=== PATIENT | male | born 1950 | race Caucasian/White ===

== ENCOUNTER → 2016-07-26 | Outpatient (CLI) | payer OTHER, MEDICARE ==
--- NOTE | 2016-07-26 15:09 | US ---
Neck Ultrasound July 26, 2016 Indication: Multinodular thyroid gland. Technique: The thyroid gland was evaluated with a high-resolution linear transducer, and the retroste rnal component of the thyroid gland was evaluated with a curved pediatric transducer. Comparison: CT of the chest dated July 08, 2016. Findings Left Lobe: A well-circumscribed [id number], heterogeneous nodule in the left mid lobe, containin g microseptations and cystic formation measures 3.7 x 3.0 x 2.4 cm. The nodule has moderate increased blood flow on color Doppler imaging. No associated microcalcifications. An exophytic nodule extending off the inferior pole of the left lobe, extending into the retrosternal space, is difficult to optimally visualize given its location in the superior mediastinum. The retro sternal nodule, containing heterogeneous calcification, measures approximately 3.2 x 2.6 x 2.5 cm. Right Lobe: A mixed cystic and solid well-circumscribed nodule in the lower right lobe measures 1.2 x 1.1 x 0.8 cm. The nodule has minimal internal blood flow on color Doppler imaging. No associated razia rocalcifications. A benign 0.5 cm colloid cyst resides in the superior right lobe. The gland is minimally enlarged with otherwise normal smooth capsule and homogeneous echogenicity. Right Lobe: 4.7 cm in length x 2.2 x 1.8 cm. Left Lobe: At least 5.6 cm in length x 2.5 x 2.1 cm Isthmus: 0.6 cm AP. No enlarged lymph node throughout the right or left neck. Impression: Multinodular thyroid gland. Dominant 3.7 cm nodule in the left mid gland and dominant ret rosternal nodule emanating off the inferior aspect of the left lobe. Based on size criteria, establis hed by the Society [employer] Ul[employer], the dominant nodule in left mid gland and the retrosternal n odule should be sampled with fine-needle aspiration. The retrosternal nodule may not be accessible gi cheyanne its location the superior mediastinum. A Follow-Up Required test result notification was sent via the [employer] service, 2:51:03 PM, 07/26/2016, [employer] Message ID [id number].
== END ==
LOC: FIMAGING 12:52
PROVIDERS: ATTEND Nurse Practitioner Adult Health
DX: E04.1 Nontoxic single thyroid nodule (principal)

== ENCOUNTER → 2016-08-05 | Outpatient (CLI) | payer OTHER, MEDICARE ==
--- NOTE | 2016-08-05 11:58 | DX ---
Chest, PA and Lateral Upright Views - August 05, 2016, at 11:16 a.m. Clinical History: 66-year-old male with a prior history of a left superomedial upper lobe pneumonia a nd substernal goiter, with a persistent cough and shortness of breath. ICD-10 Diagnostic Code: J18.1. Comparison Studies: Chest radiography and CT imaging dated July 08, 2016, thyroid sonography date d July 26, 2016, and left shoulder radiography dated January 23, 2016. Findings: There is a persistent, though slightly improved pneumonia involving the medial left upper lobe, with dense consolidation. Obstructive atelectasis may be present, and given the persistence of this finding, it may be worthwhile to consider pulmonary consultation and bronchoscopy. There is mild central perihilar bronchial wall thickening. There is mild eventration of the right hemidiaphragm. T here are degenerative features of the spine with mild ventral concavities at some [id number]-[id number] thorac ic and upper lumbar levels. Slight left lateral tracheal deviation may reflect the patient's underlyi ng substernal goiter. Impression: Slight improvement, although persistent dense consolidation of the medial left apical pn eumonia compared to July 08, 2016. Results were conveyed to the voicemail of Cesia White, Nurse Practitioner, as requested. A test result has been communicated to a licensed care provider and documented in [employer], 11:54:14 A M, 08/05/2016, [employer] Message ID [id number].
== END ==
LOC: BMCIMAGING 11:20
PROVIDERS: ATTEND Nurse Practitioner Adult Health
DX: J18.1 Lobar pneumonia, unspecified organism (principal)

== ENCOUNTER 2016-08-09 12:37 | Day surgery (SDC) | payer OTHER, MEDICARE ==
[2016-08-09] MEDS ORDERED: LIDOCAINE 1% 30 ML SDV ONE ×2 (13:32→15:11)
[2016-08-09] MEDS ORDERED: LIDOCAINE 2% JELLY 5 ML TUBE ONE (13:32)
[2016-08-09] MEDS ORDERED: ALBUTEROL 3 ML DEYVIAL ONE (13:32)
[2016-08-09] MEDS ORDERED: MIDAZOLAM 2 MG/2 ML VIAL ONE ×2 (14:27→14:58)
[2016-08-09] MEDS ORDERED: fentaNYL 100 MCG/2 ML INJ ONE ×2 (14:28→14:58)
--- NOTE | 2016-08-09 16:11 | GPN ---
[f rep st] PROCEDURE NOTE DATE OF PROCEDURE: 08/09/2016 PROCEDURE: Bronchoscopy. INDICATION: Left upper lobe atelectasis unresponsive to antibiotics with a CT scan suggesting an obs tructive bronchus/mass. The patient does have a history of smoking. DESCRIPTION OF PROCEDURE: The procedure was done in the endoscopy unit. Appropriate time-out was pe rformed. Appropriate barrier masks were worn. Informed consent was obtained from the patient. Topi nunu anesthesia consisted of a small amount of Hurricaine spray to the posterior oropharynx and approx imately 20 mL of 1% lidocaine. Conscious sedation included 6 mg of Versed and 150 mcg of fentanyl gi cheyanne intravenously. The fiberoptic bronchoscope was passed via a bite block orally into the larynx. Laryngeal structures were normal. The vocal cords moved normally with respiration and cough. There was no evidence of p aralysis, no laryngeal or vocal cord lesions. The bronchoscope was then advanced into the trachea an d into the tracheal bronchial tree bilaterally. All areas were observed to at least the segmental le nisa. Anatomy was normal bilaterally with the exception of the left upper lobe. The superior segment of the left upper lobe was almost totally occluded with abnormal tissue. Brushes and biopsy forceps could be passed through this proximal obstruction without difficulty. There was no evidence of puru lent drainage. Bronchial washings were taken from this area. Following this, a cytology brush biops y sample was obtained from the proximal lesion in this airway and beyond. Biopsies were subsequently taken. Some of the biopsies were endobronchial, at the origin of the lesion. Other biopsies were t aken more distally from the atelectatic lung segment or lung mass under fluoroscopic guidance. The patient tolerated the procedure well. There were no complications. There was no significant ble eding. Vital signs and oxygen saturations on supplemental oxygen remained normal throughout the proc edure. IMPRESSION: Obstruction of the superior segment of the left upper lobe with abnormal tissue. This f inding is worrisome for malignancy. Appropriate samples were obtained. These visual results were discussed with the patient and his following the procedure. He will b e seen back for followup next week to discuss results. Copy requested to: Cesia Gonsalves N.P. [facility] /[id number]/MODL
--- NOTE | 2016-08-09 18:49 | DX ---
Fluoroscopy Provided for Bronchoscopy HISTORY: Persistent cough, with history of left upper lobe pneumonia. Fluoroscopy time: 95.8 seconds. Cumulative dose: 10.05 mGy. FINDINGS: Single image demonstrates a bronchoscope in the left upper lobe bronchus. FINDINGS: Fluoroscopy for bronchoscopy.
== END 2016-08-09 16:10 | disposition home or self-care (01) ==
LOC: FSGY 12:37
PROVIDERS: ATTEND Internal Medicine Pulmonary Disease
PROC: 0BB88ZX Excision of Left Upper Lobe Bronchus, Via Natural or Artificial Opening Endoscopic, Diagnostic (ICD-10-PCS; principal; 2016-08-09 14:30)
DX: J84.89 Other specified interstitial pulmonary diseases (principal); I12.9 Hypertensive chronic kidney disease with stage 1 through stage 4 chronic kidney disease, or unspecified chronic kidney disease; N18.3 Chronic kidney disease, stage 3 (moderate); M06.9 Rheumatoid arthritis, unspecified
CPT/HCPCS: J0171; J2250; J3010

== ENCOUNTER → 2017-03-26 | Outpatient (CLI) | payer OTHER, MEDICARE | LOC: CIMAGING 10:08 | PROVIDERS: ATTEND Orthopaedic Surgery | DX: Z01.818 Encounter for other preprocedural examination (principal); M17.11 Unilateral primary osteoarthritis, right knee ==

== ENCOUNTER 2017-03-31 07:15 | Inpatient (IN) | payer OTHER, MEDICARE ==
--- NOTE | 2017-03-31 07:09 | PDHPUP ---
History & Physical Update H&P update statement: This history and physical update is based on an assessment of the patient which was completed after admission or registration (within 24 hours), but prior to the surgery/procedure.
--- NOTE | 2017-03-31 07:12 | PDIAF ---
- Diagnosis Diagnosis: right knee djd Code Status: Full Code - Medication Management Discharge Medications: Medications to Continue on Transfer amLODIPine BESYLATE [Norvasc 10 mg (*)] 10 mg PO DAILY 08/08/16 [Last Taken ] traMADol [Ultram 50 mg (*)] 50 mg PO Q4-6PRN PRN 08/08/16 [Last Taken 08/09/16] Furosemide [Lasix 40 MG (*)] 40 mg PO DAILY 03/04/17 [Last Taken Unknown] Hydrocodone/Acetaminophen [[place] 5/325 (*)] 1 tab PO DAILY PRN 03/04/17 [Last Taken Unknown] Isoniazid [Isoniazid 300 mg (*)] 300 mg PO HS 03/04/17 [Last Taken Unknown] Lisinopril [Zestril 5 mg (*)] 5 mg PO BID 03/04/17 [Last Taken Unknown] Pyridoxine HCl [Vitamin B-6 25 mg (*)] 25 mg PO DAILY 03/04/17 [Last Taken Unknown] Rifampin [Rifadin 300mg (*)] 300 mg PO DAILY 03/04/17 [Last Taken Unknown] Remicade Inj 100 mg (*) 03/10/17 [Last Taken 02/25/17] Discharge Medications: Refer to the Discharge Home Medication list for PRN reason. - Orders Services needed: Physical Therapy Diet Recommendation: no restrictions on diet Diet Texture: Regular Texture Diet Activity/Weight Bearing Restrictions: wbat. rom as vannessa. daily dressing changes. no soaking. may shower without bandage. seek attn for increasing redness, swelling, drainage, discharge. f/u at two weeks - Follow Up Care Current Providers and Referrals: Cesia White NP [Primary Care Provider] -
[~2017-03-31 07:15] MED LIST: ROPIVACAINE 0.2% 80 MG, EPINEPHrine 0.2 MG, KETOROLAC TROMETHAMINE 30 MG, morphINE 10 M... IU ONE; TRANEXAMIC ACID 760 MG in NS 100 ML IV ONE
[2017-03-31] MEDS ORDERED: CALCIUM CHLORIDE 1 GM/10 ML INJ ONE (11:30)
[2017-03-31] MEDS ORDERED: ceFAZolin 1 GM/5 ML SYR ONE ×2 (11:30→11:31)
[2017-03-31] MEDS ORDERED: THROMBIN (BOVINE) 5,000 UNIT VIAL TP ONE (11:30)
[2017-03-31] MEDS ORDERED: LIDOCAINE 1% 2 ML INJ ONE (11:45)
[2017-03-31] MEDS ORDERED: TRANEXAMIC ACID 650 MG TAB PO SCH (11:51)
[2017-03-31] MEDS ORDERED: traMADol 50 MG TAB PO PRN (11:51)
[2017-03-31] MEDS ORDERED: METOCLOPRAMIDE 10 MG/2 ML VIAL IVP PRN (11:51)
[2017-03-31] MEDS ORDERED: ceFAZolin 2 GM/DEXTROSE 100 ML IV ONE (11:51)
[2017-03-31] MEDS ORDERED: POLYETHYLENE GLYCOL 3350 17 GM PKT PO PRN (11:51)
[2017-03-31] MEDS ORDERED: ONDANSETRON DISINTEGRATING 4 MG TAB PO PRN (11:51)
[2017-03-31] MEDS ORDERED: ACETAMINOPHEN 325 MG TAB PO ONE (11:51)
[2017-03-31] MEDS ORDERED: MAGNESIUM HYDROXIDE 30 ML UDCUP PO PRN (11:51)
[2017-03-31] MEDS ORDERED: BISACODYL 10 MG SUPP PR PRN (11:51)
[2017-03-31] MEDS ORDERED: PROMETHAZINE HCL 25 MG/ML INJ IVP PRN (11:51)
[2017-03-31] MEDS ORDERED: DIAZEPAM 5 MG TAB PO PRN (11:51)
[2017-03-31] MEDS ORDERED: diphenhydrAMINE 25 MG CAP PO PRN (11:51)
[2017-03-31] MEDS ORDERED: DIPHENOXYLATE/ATROPINE LOMOTIL 1 TAB PO PRN (11:51)
[2017-03-31] MEDS ORDERED: PROMETHAZINE HCL 25 MG SUPPR PR PRN (11:51)
[2017-03-31] MEDS ORDERED: ONDANSETRON 4 MG/2 ML VIAL IVP PRN ×2 (11:51→14:52)
[2017-03-31] MEDS ORDERED: PHARMACY PAIN CONSULT 1 EA MISC PRN (11:51)
[2017-03-31] MEDS ORDERED: FAMOTIDINE 20 MG TAB PO ONE (11:51)
[2017-03-31] MEDS ORDERED: LR 1,000 ML IV SCH (11:51)
[2017-03-31] MEDS ORDERED: DEXAMETHASONE 4 MG/ML VIAL IVP ONE (11:51)
[2017-03-31] MEDS ORDERED: TEMAZEPAM 15 MG CAP PO PRN (11:51)
[2017-03-31] MEDS ORDERED: LACTULOSE 20 GM/30 ML UDCUP PO PRN (11:51)
[2017-03-31] MEDS ORDERED: NS 1,000 ML IV ONE (11:53)
--- NOTE | 2017-03-31 13:30 | PDANEPAE ---
ANE History of Present Illness 67 year old male w/ PMHx of RA (on remicade), TB (diagnosed in Jul 2016, on Rifampin and Isoniazid), CKD (stage III) presents for right total knee replacement. ANE Past Medical History - Cardiovascular History Hx Hypertension: Yes Hx Arrhythmias: No Hx Chest Pain: No Hx Coronary Artery / Peripheral Vascular Disease: No Hx CHF / Valvular Disease: No Hx Palpitations: No - Pulmonary History Hx COPD: No Hx Asthma/Reactive Airway Disease: No Hx Recent Upper Respiratory Infection: No Hx Oxygen in Use at Home: No Hx Sleep Apnea: No Sleep Apnea Screening Result - Last Documented: Negative Pulmonary History Comment: CURRENT COUGH & SOB - Neurologic History Hx Cerebrovascular Accident: No Hx Seizures: No Hx Dementia: No - Endocrine History Hx Diabetes: No Hypothyroid: No Hyperthyroid: No Obesity: mild Endocrine History Comment: WORKING UP THYROID PROBLEM - Renal History Hx Renal Disorders: Yes Renal History Comment: STAGE III KIDNEY DISEASE - Liver History Hx Hepatic Disorders: No - Neurological & Psychiatric Hx Hx Neurological and Psychiatric Disorders: No - Cancer History Hx Cancer: No - Congenital Disorder History Hx Congenital Disorders: No - GI History GERD: no Hx Gastrointestinal Disorders: No - Other Health History Other Health History: BRUISES EASILY - Chronic Pain History Chronic Pain: Yes (HANDS & SHOULDERS) - Surgical History Prior Surgeries: KNEE MENISCUS L. PROSTATE PHOTOVAPORIZATION. DENTAL IMPLANTS ANE Review of Systems Review of systems is: negative Review of Systems: - Exercise capacity Exercise capacity: >=4 METS METS (RN): 4 METS ANE Patient History - Allergies Allergies/Adverse Reactions: No Known Allergies Allergy (Verified 03/10/17 10:55) - Home Medications Home medications: home medication list seen and reviewed Home Medications: amLODIPine BESYLATE [Norvasc 10 mg (*)] 10 mg PO DAILY 08/08/16 [Last Taken 06/06] traMADol [Ultram 50 mg (*)] 50 mg PO Q4-6PRN PRN 08/08/16 [Last Taken 03/31/17] Furosemide [Lasix 40 MG (*)] 40 mg PO DAILY 03/04/17 [Last Taken 03/31/17] Hydrocodone/Acetaminophen [[place] 5/325 (*)] 1 tab PO DAILY PRN 03/04/17 [Last Taken 03/24/17] Isoniazid [Isoniazid 300 mg (*)] 300 mg PO HS 03/04/17 [Last Taken 03/31/17] Lisinopril [Zestril 5 mg (*)] 5 mg PO BID 03/04/17 [Last Taken 03/31/17] Pyridoxine HCl [Vitamin B-6 25 mg (*)] 25 mg PO DAILY 03/04/17 [Last Taken 03/31] Rifampin [Rifadin 300mg (*)] 300 mg PO DAILY 03/04/17 [Last Taken 03/31/17] Remicade Inj 100 mg (*) 03/10/17 [Last Taken 02/25/17] - NPO status NPO Status: no food or drink >8 hours NPO Since - Liquids (Date): 03/31/17 NPO Since - Liquids (Time): 04:00 NPO Since - Solids (Date): 03/30/17 NPO Since - Solids (Time): 04:00 - Anes Hx Anes Hx: no prior problems - Smoking Hx Smoking Status: Former smoker - Alcohol Use Alcohol Use: None - Family Anes Hx Family Anes Hx: neg - N/A Family Hx Anesthesia Complications: NEG ANE Labs/Vital Signs - Vital Signs Vital Signs: reviewed preoperatively; see RN documention for details Blood Pressure: 138/83 Heart Rate: 80 Respiratory Rate: 16 O2 Sat (%): 96 Height: 167.64 cm Weight: 76.204 kg ANE Physical Exam - Airway Neck exam: FROM Mallampati Score: Class 2 Mouth exam: poor dentition, dentures - Pulmonary Pulmonary: no respiratory distress - Cardiovascular Cardiovascular: regular rate and rhythym - ASA Status ASA Status: III ANE Anesthesia Plan Anesthesia Plan: MAC, spinal (General anesthesia will be back-up plan.)
[2017-03-31] MEDS ORDERED: MIDAZOLAM 2 MG/2 ML VIAL IVP ONE ×2 (13:32→15:00)
[2017-03-31] MEDS ORDERED: PROPOFOL/EMULSION 500 MG/50 ML BOTTLE IV ONE (13:43)
[2017-03-31] MEDS ORDERED: ceFAZolin 2 GM/DEXTROSE 100 ML IV SCH (14:00)
[2017-03-31] MEDS ORDERED: ROPIVACAINE HCL 150 MG/30 ML INJ ONE (14:01)
[2017-03-31] MEDS ORDERED: PHENYLEPHRINE HCL 100 MCG/ML SYR ONE (14:42)
[2017-03-31] MEDS ORDERED: LR 500 ML IV PRN (14:52)
[2017-03-31] MEDS ORDERED: fentaNYL 100 MCG/2 ML INJ IVP PRN (14:52)
[2017-03-31] MEDS ORDERED: HYDROCODONE/APAP 5/325 TAB PO PRN (14:52)
[2017-03-31] MEDS ORDERED: NALOXONE HCL 0.4 MG/ML INJ IVP PRN (14:52)
[2017-03-31] MEDS ORDERED: ONDANSETRON 4 MG/2 ML VIAL ONE (14:58)
[2017-03-31] MEDS ORDERED: DEXAMETHASONE 4 MG/ML VIAL ONE (14:58)
[2017-03-31] MEDS ORDERED: fentaNYL 100 MCG/2 ML INJ ONE (15:48)
--- NOTE | 2017-03-31 16:44 | POSTANESTH ---
Post Anesthetic Evaluation Cardiovascular Status: Normal, Stable, Similar to Pre-Op Cond Respiratory Status: Normal, Stable, Similar to Pre-op Cond. Level of Consciousness/Mental Status: Can Participate in Eval, Alert and Oriented Pain Control: Adequate, Prn Tx Ordered Nausea/Vomiting Control: Adequate, Prn Tx Ordered Complications Possibly Related to Anesthesia: None Noted
[2017-03-31] MEDS: LISINOPRIL 5 MG TAB PO SCH ×2 (17:56→21:30)
[2017-03-31] MEDS: FUROSEMIDE 40 MG TAB PO SCH (17:56)
[2017-03-31] MEDS: SENNOSIDES/DOCUSATE SODIUM TAB PO SCH ×2 (18:15→21:26)
[2017-03-31] MEDS: PYRIDOXINE HCL 25 MG TAB PO SCH (18:15)
[2017-03-31] MEDS: ACETAMINOPHEN 325 MG TAB PO SCH (18:16)
[2017-03-31] MEDS: oxyCODONE IR 5 MG TAB PO PRN ×2 (18:18→21:25)
[2017-03-31] MEDS: ceFAZolin 2 GM/DEXTROSE 100 ML IV SCH (18:50)
[2017-03-31] MEDS ORDERED: ISONIAZID 300 MG TAB PO SCH (21:00)
[2017-03-31] MEDS ORDERED: ASPIRIN 325 MG TAB PO SCH (21:00)
[2017-03-31] MEDS: FAMOTIDINE 20 MG TAB PO SCH (21:25)
[2017-04-01] MEDS: TRANEXAMIC ACID 650 MG TAB PO SCH ×2 (00:40→09:33)
[2017-04-01] MEDS: oxyCODONE IR 5 MG TAB PO PRN ×4 (00:40→12:24)
[2017-04-01] MEDS: ACETAMINOPHEN 325 MG TAB PO SCH ×3 (00:40→12:24)
[2017-04-01] MEDS: ceFAZolin 2 GM/DEXTROSE 100 ML IV SCH (02:58)
[2017-04-01 04:55] LABS: HEMATOCRIT 32.9 % (40.0-51.0); HEMOGLOBIN 10.7 g/dL (13.7-17.5)
[2017-04-01] MEDS ORDERED: ISONIAZID 300 MG TAB PO SCH (06:00)
--- NOTE | 2017-04-01 07:30 | PDIAF ---
- Diagnosis Diagnosis: right knee djd Code Status: Full Code - Medication Management Discharge Medications: Medications to Continue on Transfer amLODIPine BESYLATE [Norvasc 10 mg (*)] 10 mg PO DAILY 08/08/16 [Last Taken 06/06] traMADol [Ultram 50 mg (*)] 50 mg PO Q4-6PRN PRN 08/08/16 [Last Taken 03/31/17] Furosemide [Lasix 40 MG (*)] 40 mg PO DAILY 03/04/17 [Last Taken 03/31/17] Hydrocodone/Acetaminophen [[place] 5/325 (*)] 1 tab PO DAILY PRN 03/04/17 [Last Taken 03/24/17] Isoniazid [Isoniazid 300 mg (*)] 300 mg PO DAILY@06 03/04/17 [Last Taken ] Lisinopril [Zestril 5 mg (*)] 5 mg PO BID 03/04/17 [Last Taken 03/31/17] Pyridoxine HCl [Vitamin B-6 25 mg (*)] 25 mg PO DAILY 03/04/17 [Last Taken 03/31] Rifampin [Rifadin 300mg (*)] 300 mg PO DAILY 03/04/17 [Last Taken 03/31/17] Remicade Inj 100 mg (*) 03/10/17 [Last Taken 02/25/17] Enoxaparin [Lovenox] 30 mg SC BID #14 syr 04/01/17 [Last Taken Unknown] oxyCODONE IR [Oxycodone Ir (*)] 5 - 10 mg PO Q3HRS PRN #80 tab 04/01/17 [Last Taken Unknown] Discharge Medications: Refer to the Discharge Home Medication list for PRN reason. - Orders Services needed: Physical Therapy Diet Recommendation: no restrictions on diet Diet Texture: Regular Texture Diet Activity/Weight Bearing Restrictions: wbat. rom as vannessa. daily dressing changes. no soaking. may shower without bandage. seek attn for increasing redness, swelling, drainage, discharge. f/u at two weeks - Follow Up Care Current Providers and Referrals: Cesia White NP [[facility] [place] Primary Care Provider] -
[2017-04-01 07:45] VITALS: RESP 20
--- NOTE | 2017-04-01 07:52 | GDS ---
[f rep st] DISCHARGE SUMMARY ADMITTING DIAGNOSIS: Right knee degenerative joint disease. DISCHARGE DIAGNOSIS: Right knee degenerative joint disease. PROCEDURE: Right total knee arthroplasty. OPERATIVE INDICATIONS: The patient is a 67-year-old gentleman with end-stage arthritis to his right knee. Clinical and radiographic features are consistent with this. He has failed all attempts at co nservative management. I have, therefore, recommended total knee replacement. He understood the ris ks, benefits, alternatives, and wished to proceed. Written consent was signed and placed in the [facility] ent's chart. HOSPITAL COURSE: The patient was admitted to the hospital floor after uncomplicated total knee arthr oplasty. He tolerated the procedure well. Postoperatively, he had no complications. At the time of discharge, he is tolerating an oral diet. His pain is well controlled on oral medicines. He is voi ding without difficulty. Dressing is clean, dry, and intact. He has no calf swelling or tenderness bilaterally. Negative Alfie's bilaterally. X-rays are stable with anatomic alignment. No fracture or lucency. DISCHARGE ACTIVITIES: He is weightbearing as tolerated. Range of motion as tolerated. Daily dressi ng changes. No soaking or immersion. Follow up for increasing redness, swelling, drainage, discharg e, calf pain, other focal complaints. FOLLOWUP: Two weeks for repeat evaluation. DISCHARGE MEDICATIONS: Oxycodone 5 mg 1-3 every 4 hours p.r.n. pain. Lovenox 30 mg subcu b.i.d. for 2 weeks. Copy requested to: Primary Care Physician /[id number]/MODL
[2017-04-01] MEDS: FUROSEMIDE 40 MG TAB PO SCH (09:34)
[2017-04-01] MEDS: FAMOTIDINE 20 MG TAB PO SCH (09:34)
[2017-04-01] MEDS: LISINOPRIL 5 MG TAB PO SCH (09:36)
[2017-04-01] MEDS: SENNOSIDES/DOCUSATE SODIUM TAB PO SCH (09:36)
[2017-04-01] MEDS: ENOXAPARIN 30 MG/0.3 ML SYR SC SCH ×2 (09:37→09:38)
[2017-04-01] MEDS: PYRIDOXINE HCL 25 MG TAB PO SCH (09:57)
--- NOTE | 2017-04-01 10:32 | ASMTCMCOM ---
CM Note CM Note Notes: Met with patient regarding discharge poc. Patient has good support from , declines the need for Home Health Care. Patient will follow-up with outpatient PT. CM available should needs arise. Date Signed: 04/01/2017 10:31 AM Electronically Signed By:Kerrie Dozier RN
[2017-04-01 11:37] VITALS: BP 141/78; PULSE 70; TEMP 98; O2SAT 93
--- NOTE | 2017-04-01 16:57 | ASDISCHSUM ---
Discharge Information Plan Status: Medically Cleared to Leave: Discharge Date:04/01/2017 04:01 PM CM D/C Disposition: ADT D/C Disposition:Home, Routine, Self-Care Projected Discharge Date:04/01/2017 04:01 PM Transportation at D/C: Discharge Delay Reason: Follow-Up Date:04/01/2017 04:01 PM Discharge Slot: Final Diagnosis: Placement Information Patient Contact Information Contact Name:NATA Relationship: Address:[address] [place] [address] City:[place] Alternate Phone: State/Zip Code:[place] [address] Email: Financial Information Financial Class: Primary Plan Desc:MEDICARE INPATIENT Primary Plan Number:[id number] Secondary Plan Desc:[employer]/M[employer] SUPPLEMENT Secondary Plan Number:[id number] Assessment Information [facility] CM Progress Note CM Note CM Note Notes: Met with patient regarding discharge poc. Patient has good support from , declines the need for Home Health Care. Patient will follow-up with outpatient PT. CM available should needs arise. Date Signed: 04/01/2017 10:31 AM Electronically Signed By:Kerrie Dozier RN Intervention Information
== END 2017-04-01 16:01 | disposition home or self-care (01) | DRG 470 ==
LOC: F3N 11:14
PROVIDERS: ADMIT Orthopaedic Surgery; ATTEND Orthopaedic Surgery
PROC: 0SRC0JZ Replacement of Right Knee Joint with Synthetic Substitute, Open Approach (ICD-10-PCS; principal; 2017-03-31 07:15)
DX: M17.11 Unilateral primary osteoarthritis, right knee (principal); I12.9 Hypertensive chronic kidney disease with stage 1 through stage 4 chronic kidney disease, or unspecified chronic kidney disease; N18.3 Chronic kidney disease, stage 3 (moderate); Z87.891 Personal history of nicotine dependence
CPT/HCPCS: 97161-GP; 97165-GO; C1713; G8978-GP-CI; G8979-GP-CI; G8980-GP-CI; G8987-GO-CI; G8988-GO-CI; G8989-GO-CI; J0171; J0690; J1100; J1650; J1885; J2250; J2370; J2405; J2704; J2795; J3010

== ENCOUNTER → 2017-05-09 | Outpatient (CLI) | payer OTHER, MEDICARE | LOC: FIMAGING 14:45 | PROVIDERS: ATTEND Internal Medicine | DX: M79.661 Pain in right lower leg (principal); Z96.651 Presence of right artificial knee joint ==

== ENCOUNTER → 2017-05-19 | Outpatient (CLI) | payer OTHER, MEDICARE | LOC: BMCIMAGING 10:25 | PROVIDERS: ATTEND Physician Assistant | DX: Z47.1 Aftercare following joint replacement surgery (principal); M25.471 Effusion, right ankle; Z96.651 Presence of right artificial knee joint ==

== ENCOUNTER → 2017-06-24 | Outpatient (CLI) | payer OTHER, MEDICARE | LOC: BMCIMAGING 13:36 | PROVIDERS: ATTEND Physician Assistant | DX: Z47.1 Aftercare following joint replacement surgery (principal); Z96.651 Presence of right artificial knee joint ==

== ENCOUNTER → 2017-09-09 | Outpatient (CLI) | payer OTHER, MEDICARE | LOC: BMCIMAGING 15:03 | PROVIDERS: ATTEND Physician Assistant | DX: Z47.1 Aftercare following joint replacement surgery (principal); Z96.651 Presence of right artificial knee joint ==

== ENCOUNTER → 2017-09-11 | Outpatient (CLI) | payer OTHER, MEDICARE | LOC: FIMAGING 06:28 | PROVIDERS: ATTEND Physician Assistant | DX: Z96.651 Presence of right artificial knee joint (principal); M25.461 Effusion, right knee; M76.891 Other specified enthesopathies of right lower limb, excluding foot ==

== ENCOUNTER → 2018-01-20 | Outpatient (CLI) | payer OTHER, MEDICARE | LOC: FIMAGING 10:04 | PROVIDERS: ATTEND Orthopaedic Surgery Hand Surgery | DX: Z47.1 Aftercare following joint replacement surgery (principal); Z96.651 Presence of right artificial knee joint | CPT/HCPCS: 78315; A9503 ==

== ENCOUNTER → 2018-11-26 | Outpatient (CLI) | payer OTHER, MEDICARE | LOC: BMCIMAGING 10:00 | PROVIDERS: ATTEND Internal Medicine Rheumatology | DX: M06.00 Rheumatoid arthritis without rheumatoid factor, unspecified site (principal); Z51.81 Encounter for therapeutic drug level monitoring ==